=== PATIENT | male | born 1980 | race Caucasian/White ===

== ENCOUNTER 2020-03-18 12:44 | Emergency (ER) | payer MEDICAID ==
[~2020-03-18] VITALS: Ht 182.9 cm; Wt 90.0 kg
[2020-03-18 12:50] VITALS: BP 126/67
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
[2020-03-18] MEDS ORDERED: DIPHTHERIA-TETANUS ADULT 0.5ML IM-VACC ONE (13:30)
[2020-03-18] MEDS ORDERED: NEOSPORIN OINT. PKT 1 PACKET ONE (13:49)
--- NOTE | 2020-03-18 14:46 | NUR ---
PT BACK FROM CT
--- NOTE | 2020-03-18 15:54 | NUR ---
PT GIVEN MEAL TRAY
--- NOTE | 2020-03-18 16:29 | NUR ---
pt given meal tray. ambulated w steady gait
--- NOTE | 2020-03-18 17:04 | NUR ---
Patient/Caregiver given discharge instructions and they have confirmed that they understand the instructions. Patient ambulatory with steady gait.
== END 2020-03-18 18:42 | disposition home or self-care (01) ==
LOC: ED 17:06
DX: S00.91XA Abrasion of unspecified part of head, initial encounter (principal); S00.81XA Abrasion of other part of head, initial encounter; S00.31XA Abrasion of nose, initial encounter; S80.212A Abrasion, left knee, initial encounter; S80.211A Abrasion, right knee, initial encounter; F10.220 Alcohol dependence with intoxication, uncomplicated; R55 Syncope and collapse; Y04.8XXA Assault by other bodily force, initial encounter; Y93.89 Activity, other specified; Y92.488 Other paved roadways as the place of occurrence of the external cause; Y99.8 Other external cause status; Y90.0 Blood alcohol level of less than 20 mg/100 ml
CPT/HCPCS: 70450; 70486; 71045; 90471; 90714; 99285